=== PATIENT | male | born 2005 | race Caucasian/White ===

== ENCOUNTER 2025-02-13 10:53 | Emergency (ER) | payer OTHER ==
[2025-02-13 11:39] LABS: #Basophils 0.03 10x3/uL (0.0-0.2); #Eosinophils Less than 0.03 10x3/uL (0.0-0.5); #Monocytes 2.08 10x3/uL (0.0-1.1); #Neutrophils 9.41 10x3/uL (1.5-8.4); %Basophils 0.2 % (0.0-2.0); %Eosinophils 0.0 % (0.0-6.0); %Lymphocytes 10.3 % (18.0-47.0); %Monocytes 16.1 % (0.0-10.0); %Neutrophils 73.1 % (40.0-75.0); Hematocrit 38.7 % (38.8-50.0); Hemoglobin 12.4 g/dL (13.5-17.5); Mean Corpuscular Hemoglobin 27.6 pg (27.0-33.0); Mean Corpuscular Volume 86.2 fL (81.2-95.1); Platelet Count 310 10x3/uL (150-450); Red Blood Cell (RBC) Count 4.49 10x6/uL (4.32-5.72); White Blood Cell (WBC) Count 12.89 10x3/uL (3.5-10.5)
[2025-02-13] MEDS ORDERED: Acetaminophen 500 MG TAB ONE (11:46)
[2025-02-13] MEDS ORDERED: Ketorolac Tromethamine 30 MG (1 mL) VIAL ONE (11:46)
[2025-02-13] MEDS ORDERED: Ondansetron PF 4 MG/2 ML Vial ONE (11:46)
[2025-02-13 11:54] LABS: ALT (SGPT) 29 U/L (Less than 45); AST (SGOT) 22 U/L (11-34); Albumin 3.6 g/dL (3.1-4.5); Alkaline Phosphatase 66 U/L (50-130); Anion Gap 13 mmol/L (10-20); BUN (Urea Nitrogen) 10 mg/dL (8.4-21.0); Bilirubin, Total 0.6 mg/dL (0.3-1.2); Calc. Creatinine Clearance 0 mL/min (70-130); Calcium 9.1 mg/dL (7.8-10.44); Carbon Dioxide 26 mmol/L (22-29); Chloride 99 mmol/L (98-107); Globulin 4.1 g/dL (2.4-3.5); Glucose 96 mg/dL (70-105); Potassium 3.9 mmol/L (3.5-5.1); Sodium 134 mmol/L (136-145)
== END 2025-02-13 12:30 | disposition home or self-care (01) ==
LOC: CSHERS 10:53
DX: J11.1 Influenza due to unidentified influenza virus with other respiratory manifestations (principal); F17.200 Nicotine dependence, unspecified, uncomplicated
CPT/HCPCS: 36415; 71045; 80053; 85025; 96372; 99283; J1885; J2405